=== PATIENT | male | born 1965 | race African-American/Black ===

== ENCOUNTER 2021-01-20 19:06 | Emergency (ER) | payer BC ==
[~2021-01-20] VITALS: Ht 180.3 cm; Wt 86.2 kg
[2021-01-20 19:16] VITALS: BP 170/94
[2021-01-21] MEDS ORDERED: LIPITOR 10 MG10 M1 PO (07:46)
[2021-01-21] MEDS ORDERED: LISINOPRIL20 MG PO (07:46)
== END 2021-01-21 03:57 | disposition home or self-care (01) ==
LOC: ER 19:06
DX: I10 Essential (primary) hypertension (principal); Z53.21 Procedure and treatment not carried out due to patient leaving prior to being seen by health care provider

== ENCOUNTER 2021-01-21 06:17 | Emergency (ER) | payer BC ==
[~2021-01-21] VITALS: Ht 172.7 cm; Wt 72.6 kg
[2021-01-21] MEDS ORDERED: LISINOPRIL20 MG PO (07:46)
[2021-01-21] MEDS ORDERED: LIPITOR 10 MG10 M1 PO (07:46)
[2021-01-21 07:55] VITALS: BP 162/90
== END 2021-01-21 07:58 | disposition home or self-care (01) ==
LOC: ER 06:17
DX: U07.1 COVID-19 (principal); R51.9 Headache, unspecified; M79.10 Myalgia, unspecified site; I10 Essential (primary) hypertension